=== PATIENT | female | born 1985 | race Caucasian/White ===

== ENCOUNTER 2023-12-14 13:28 | Emergency (ER) | payer SELFPAY ==
[~2023-12-14] VITALS: Ht 152.4 cm; Wt 53.8 kg
[2023-12-14 15:42] VITALS: BP 175/91; TEMP 98.7; O2SAT 98
== END 2023-12-14 15:45 | disposition home or self-care (01) ==
LOC: M ED 13:28
DX: M79.672 Pain in left foot (principal); F17.290 Nicotine dependence, other tobacco product, uncomplicated; F12.10 Cannabis abuse, uncomplicated